=== PATIENT | male | born 1940 | race Caucasian/White ===

== ENCOUNTER 2017-02-11 02:35 | Outpatient (CLI) | payer MEDICARE, OTHER ==
[~2017-02-11 02:35] MED LIST: AMLO10TA4 PO; AMYL1CAP57 PO; INSU100V36 SQ; LANTUS SQ; LEVO175T7 PO; METF500T PO; OMEP20CA10 PO; SIMV40TA4 PO; TERA2CAP4 PO; ZOLP5TAB8 PO
== END 2017-02-11 23:59 | disposition home or self-care (01) ==
LOC: DIABETIC 02:35
PROVIDERS: ATTEND Specialist
DX: E11.65 Type 2 diabetes mellitus with hyperglycemia (principal); Z85.038 Personal history of other malignant neoplasm of large intestine; Z85.850 Personal history of malignant neoplasm of thyroid
CPT/HCPCS: G0108